=== PATIENT | male | born 1940 | race Caucasian/White ===

== ENCOUNTER 2017-10-11 16:47 | Inpatient (IN) | payer MEDICARE, OTHER ==
[2017-10-11] MEDS ORDERED: Ondansetron 4 MG Tab.DIS PO PRN (17:08)
[2017-10-11] MEDS ORDERED: Acetaminophen 325 MG Tab PO PRN (17:08)
[2017-10-11] MEDS ORDERED: Sodium Chloride 0.9% 10 ML Syringe FLUSH PRN (17:08)
[2017-10-11] MEDS ORDERED: Ondansetron 4 MG/2 ML SDV IV PRN (17:08)
[2017-10-11] MEDS ORDERED: Temazepam 15 MG Cap PO PRN (17:08)
[2017-10-11] MEDS: Clindamycin Phosphate in D5W 300 MG in Premix Bag 1 BAG IV SCH ×4 (18:08→23:00)
[2017-10-11] MEDS ORDERED: Furosemide 40 MG Tab PO PRN (19:06)
[2017-10-11] MEDS ORDERED: Albuterol 8 GM Inhaler INH PRN (19:06)
[2017-10-11] MEDS: Gabapentin 300 MG Cap PO SCH (20:05)
[2017-10-11] MEDS: Simvastatin 40 MG Tab PO SCH (20:05)
[2017-10-11] MEDS: Aspirin 81 MG Tab.EC PO SCH (20:05)
[2017-10-11] MEDS: Metoprolol Tartrate 25 MG Tab PO SCH (20:05)
[2017-10-11] MEDS: Clopidogrel 75 MG Tab PO SCH (20:06)
[2017-10-11] MEDS: Losartan 25 MG Tab PO SCH (20:06)
[2017-10-11] MEDS: Tamsulosin 0.4 MG Cap.ER PO SCH (20:07)
[2017-10-11] MEDS: Formoterol/Mometasone 200-5 MCG 8.8 GM Inhaler IH SCH (20:16)
[2017-10-11] MEDS: Tiotropium Inhaler 18 MCG Inhalation Powder Cap Kit of 5 INH SCH (20:20)
[2017-10-12] MEDS: Clindamycin Phosphate in D5W 300 MG in Premix Bag 1 BAG IV SCH ×2 (05:48)
[2017-10-12] MEDS ORDERED: Albuterol 8 GM Inhaler INH PRN ×2 (07:57→08:00)
[2017-10-12] MEDS: Multivitamin Tab PO SCH (08:03)
[2017-10-12] MEDS: Gabapentin 300 MG Cap PO SCH ×2 (08:03→19:35)
[2017-10-12] MEDS: Metoprolol Tartrate 50 MG Tab PO SCH (08:03)
[2017-10-12] MEDS: Beta-Carotene (Vitamin A) w/Vitamin C & E plus Minerals Tab PO SCH (08:03)
[2017-10-12] MEDS: Calcium Carbonate 500 MG Tab.Chew PO SCH (08:04)
[2017-10-12] MEDS: Cholecalciferol (Vitamin D3) 1,000 Unit Tab PO SCH (08:04)
[2017-10-12] MEDS: Formoterol/Mometasone 200-5 MCG 8.8 GM Inhaler IH SCH ×2 (08:05→19:37)
--- NOTE | 2017-10-12 09:50 | PN ---
DATE: 10/12/2017 S: Lopez Humphries is in with a cellulitis of right lower extremity. Admitted yesterday. Started on Cleocin. O: On examination, erythema and edema apparently, according to the nurses, are down. Says he feels better. LABORATORY DATA: C-reactive protein is up a little bit. ASSESSMENT: CELLULITIS. P: Continue IV antibiotics. CHRISTIAN /[id number]
[2017-10-12] MEDS: COENZYME Q10 PO SCH ×2 (11:06→19:40)
[2017-10-12] MEDS: OSTEO BI FLEX PO SCH (11:06)
[2017-10-12] MEDS ORDERED: Meropenem 1 GM SDV IVPUSH ONE (12:00)
[2017-10-12] MEDS ORDERED: Clindamycin Phosphate in D5W 300 MG in Premix Bag 1 BAG IV SCH ×2 (12:00)
[2017-10-12] MEDS: Simvastatin 40 MG Tab PO SCH (19:35)
[2017-10-12] MEDS: Losartan 25 MG Tab PO SCH (19:36)
[2017-10-12] MEDS: Aspirin 81 MG Tab.EC PO SCH (19:36)
[2017-10-12] MEDS: Metoprolol Tartrate 25 MG Tab PO SCH (19:36)
[2017-10-12] MEDS: Tamsulosin 0.4 MG Cap.ER PO SCH (19:36)
[2017-10-12] MEDS: Clopidogrel 75 MG Tab PO SCH (19:37)
[2017-10-12] MEDS: Tiotropium Inhaler 18 MCG Inhalation Powder Cap Kit of 5 INH SCH (19:38)
[2017-10-12] MEDS: Meropenem 1 GM SDV IVPUSH SCH (23:51)
[2017-10-13] MEDS: Meropenem 1 GM SDV IVPUSH SCH ×3 (07:36→23:41)
[2017-10-13] MEDS: Beta-Carotene (Vitamin A) w/Vitamin C & E plus Minerals Tab PO SCH (07:37)
[2017-10-13] MEDS: Gabapentin 300 MG Cap PO SCH ×2 (07:37→19:39)
[2017-10-13] MEDS: Metoprolol Tartrate 50 MG Tab PO SCH (07:37)
[2017-10-13] MEDS: Multivitamin Tab PO SCH (07:37)
[2017-10-13] MEDS: Calcium Carbonate 500 MG Tab.Chew PO SCH (07:38)
[2017-10-13] MEDS: Cholecalciferol (Vitamin D3) 1,000 Unit Tab PO SCH (07:38)
[2017-10-13] MEDS: Formoterol/Mometasone 200-5 MCG 8.8 GM Inhaler IH SCH ×2 (07:41→19:37)
[2017-10-13] MEDS: OSTEO BI FLEX PO SCH (07:41)
[2017-10-13] MEDS: COENZYME Q10 PO SCH ×2 (07:41→19:42)
--- NOTE | 2017-10-13 13:05 | PN ---
DATE: 10/13/2017 S: Lopez is a 76-year-old male who was admitted to the hospital on the 10/11 secondary to cellulitis of the right lower extremity. He was started on IV antibiotic, vancomycin. He was initially started on Cleocin and started on vancomycin yesterday. He has been responding well. He denies any discomfort in the right lower leg. He states that he feels like it is improving. He states he has otherwise been feeling well during his stay. 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 He states this is unchanged as well. Again, he feels that the redness and the warmth to the right lower leg has significantly improved. O: VITAL SIGNS: Blood pressure is 138/57 with a pulse of 57, O2 sat 97% on room air, temp is 97.5. He has been afebrile since admission. GENERAL: Pleasant cooperative male. He is sitting up, having normal conversation with me. He is requesting to go home in the near future. He denies any complaints at this point in time. He denies any increase in discomfort, etc. HEENT: Grossly unremarkable. LUNGS: Clear to auscultation. I did not hear any adventitious sounds. CARDIAC: Regular. EXTREMITIES: Examination of the right lower extremity does reveal somewhat diminished erythema to the right lower leg that is documented by permanent marker. There is some very minimal warmth to the right lower extremity, which does appear to be improved as well. Evaluation of the amputation of the right foot does show a small well-healing wound. I do not see any active drainage presently. He does have some blanching noted to the right lower leg where the increasing erythema is present. LABORATORY DATA: Does show a white blood count to be improved to 9400, it was 13,700 on admission. D-dimer was only 0.52. INR today was 1.53. His CRP is at 8.5, down from 11.1 yesterday. ASSESSMENT: CELLULITIS OF THE RIGHT LOWER EXTREMITY. P: Initial culture report did show gram-negative rods. However, I do not have a final report back. We will continue to keep him on vancomycin until final report. We will possibly discharge tomorrow as long as he continues to progress. He did verbalize complete understanding of this. was present and verbalized understanding as well. We will re-evaluate in the morning. EDWIN/NEHEMIAH /[id number]
[2017-10-13] MEDS: Losartan 25 MG Tab PO SCH (19:36)
[2017-10-13] MEDS: Tamsulosin 0.4 MG Cap.ER PO SCH (19:37)
[2017-10-13] MEDS: Metoprolol Tartrate 25 MG Tab PO SCH (19:38)
[2017-10-13] MEDS: Aspirin 81 MG Tab.EC PO SCH (19:38)
[2017-10-13] MEDS: Clopidogrel 75 MG Tab PO SCH (19:39)
[2017-10-13] MEDS: Simvastatin 40 MG Tab PO SCH (19:40)
[2017-10-13] MEDS: Tiotropium Inhaler 18 MCG Inhalation Powder Cap Kit of 5 INH SCH (19:40)
[2017-10-14] MEDS: Calcium Carbonate 500 MG Tab.Chew PO SCH (07:57)
[2017-10-14] MEDS: Beta-Carotene (Vitamin A) w/Vitamin C & E plus Minerals Tab PO SCH (07:58)
[2017-10-14] MEDS: Metoprolol Tartrate 50 MG Tab PO SCH (07:58)
[2017-10-14] MEDS: Multivitamin Tab PO SCH (07:58)
[2017-10-14] MEDS: Cholecalciferol (Vitamin D3) 1,000 Unit Tab PO SCH (07:59)
[2017-10-14] MEDS: Gabapentin 300 MG Cap PO SCH ×2 (07:59→19:36)
[2017-10-14] MEDS: Meropenem 1 GM SDV IVPUSH SCH (08:00)
[2017-10-14] MEDS: COENZYME Q10 PO SCH ×2 (08:06→19:38)
[2017-10-14] MEDS: OSTEO BI FLEX PO SCH (08:06)
[2017-10-14] MEDS: Formoterol/Mometasone 200-5 MCG 8.8 GM Inhaler IH SCH ×2 (08:06→19:34)
[2017-10-14] MEDS ORDERED: Warfarin 5 MG Tab PO SCH (12:00)
[2017-10-14] MEDS ORDERED: cefTRIAXone 1 GM Vial IVPUSH SCH (12:00)
--- NOTE | 2017-10-14 12:10 | PN ---
DATE: 10/14/2017 S: Lopez is a 76-year-old male who was admitted to the hospital on 10/11 with concerns of cellulitis to the right lower extremity. 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 He does have a little wound in that vicinity as well. The cellulitis has been mostly confined to the right anterior malone area. He had been put on meropenem and vancomycin, waiting upon culture report. He has been progressing well during his stay. He has been afebrile. He states he does not have any discomfort. He has noticed that the redness in his leg has went down quite a bit. He does not have any concerns at this point in time. O: VITAL SIGNS: Blood pressure is 140/78, pulse has been 83, O2 saturation is 94%, respiratory rate 18, again temperature is 98.2. GENERAL: Pleasant, cooperative male. He is sitting comfortably on his hospital bed. He does not appear to be in any acute distress, not acutely ill. HEENT: Grossly unremarkable. LUNGS: Clear to auscultation. I did not hear any adventitious sounds. CARDIAC: Regular. ABDOMEN: Soft. Bowel sounds are present, normoactive. No organomegaly. No guarding or rigidity. EXTREMITIES: Examination of the left lower extremity does show moderate improvement in regard to erythema of the left anterior malone region. Known wound to the distal tip of the amputation of the left second digit. It is healing well. Very minimal warmth is noted to the left anterior malone region. ASSESSMENT: CELLULITIS OF THE RIGHT LOWER EXTREMITY. P: I did review his microbiology report. It did grow out Serratia marcescens with the sensitivity report. He is sensitive to multiple antibiotics that include ceftriaxone. We will proceed with discontinuing his meropenem and vancomycin and switching him to Rocephin for one day due to being on Coumadin with his INR being subtherapeutic. INR this morning was 1.45, down from 1.53 yesterday. We will give him 5 mg of Coumadin instead of 3 mg today to see how he responds tomorrow. We will look at discharge in the morning. I did speak with both Lopez and his . They both are in agreement with this. The patient is in satisfactory condition. EDWIN/NEHEMIAH /[id number]
[2017-10-14] MEDS: Tamsulosin 0.4 MG Cap.ER PO SCH (19:35)
[2017-10-14] MEDS: Aspirin 81 MG Tab.EC PO SCH (19:36)
[2017-10-14] MEDS: Clopidogrel 75 MG Tab PO SCH (19:36)
[2017-10-14] MEDS: Tiotropium Inhaler 18 MCG Inhalation Powder Cap Kit of 5 INH SCH (19:36)
[2017-10-14] MEDS: Simvastatin 40 MG Tab PO SCH (19:38)
[2017-10-14] MEDS: Losartan 25 MG Tab PO SCH (19:40)
[2017-10-14] MEDS: Metoprolol Tartrate 25 MG Tab PO SCH (19:41)
[2017-10-15 07:19] VITALS: BP 119/82
[2017-10-15] MEDS: Calcium Carbonate 500 MG Tab.Chew PO SCH (07:39)
[2017-10-15] MEDS: Beta-Carotene (Vitamin A) w/Vitamin C & E plus Minerals Tab PO SCH (07:40)
[2017-10-15] MEDS: Gabapentin 300 MG Cap PO SCH (07:40)
[2017-10-15] MEDS: Metoprolol Tartrate 50 MG Tab PO SCH (07:40)
[2017-10-15] MEDS: Multivitamin Tab PO SCH (07:40)
[2017-10-15] MEDS: Cholecalciferol (Vitamin D3) 1,000 Unit Tab PO SCH (07:40)
[2017-10-15] MEDS: OSTEO BI FLEX PO SCH (07:42)
[2017-10-15] MEDS: Formoterol/Mometasone 200-5 MCG 8.8 GM Inhaler IH SCH (07:42)
[2017-10-15] MEDS: COENZYME Q10 PO SCH (07:42)
--- NOTE | 2017-10-15 08:41 | PCM.DCSUM1 ---
Discharge Summary - Hospital Course HPI Initial Comments: Lopez is a 76 year old male who was admitted to the hospital from the clinic on 10/11/2017 for right lower extremity cellulitis. He had a toe amputation on that foot on 09/08/2017. The redness was primarily located on his anterior malone. He was initially started on clindamycin. His CRP did increase some, so he was switched to Vancomycin and merepenum until his wound cultures came back. Wound cultures grew serratia marcescens, which was sensitive to ceftriaxone, so he was switched to that. Throughout hospital stay both his WBC and CRP trended down and patient was afebrile. WBC on admission was 13.7 and at time of discharge was 9.7. CRP at time of admission was 11.1 and down to 3.1 at time of discharge. Patient will be sent home on first generation cephalosporin, Keflex to take for an additional 10 days. His INR was subtherapeutic throughout stay, so we will increase his Coumadin dose to 5 mg daily. INR at discharge was 1.4. Patient was anxious to discharge home. Patient will follow up in the clinic with Dr. Morrison on 10/19/2017, with lab work prior to that. - Discharge Data Discharge Date: 10/15/17 Discharge Disposition: Home, Self-Care 01 Condition: Good - Discharge Diagnosis/Problem(s) (1) Cellulitis of right anterior lower leg SNOMED Code(s): 248008090 ICD Code: L03.115 - CELLULITIS OF RIGHT LOWER LIMB Status: Acute - Patient Instructions Diet: Usual Diet as Tolerated Activity: As Tolerated Wound/Incision Care: Keep Operative Site/Wound Site Clean and Dry Notify Provider of: Fever, Increased Pain, Swelling and Redness, Drainage - Discharge Plan Prescriptions/Med Rec: Cephalexin [Keflex] 500 mg PO BID 10 Days #20 capsule Warfarin [Coumadin] 5 mg PO DAILY #30 tablet Home Medications: Home Meds Felodipine [Felodipine ER] 5 mg PO BEDTIME 05/30/14 [History] Gabapentin 300 mg PO BID 05/30/14 [History] Irbesartan [Avapro] 150 mg PO BEDTIME 05/30/14 [History] Metoprolol Tartrate [Lopressor] 25 mg PO BEDTIME 05/30/14 [History] Tamsulosin [Flomax] 0.8 mg PO BEDTIME 05/30/14 [History] Ascorbic Acid [C-1000] 1,000 mg PO DAILY 05/31/14 [History] Aspirin [Halfprin] 81 mg PO BEDTIME 05/31/14 [History] Budesonide/Formoterol [Symbicort 160-4.5 MCG] 2 puff INH BID 05/31/14 [History] Calcium Carbonate [Calcium] 1,200 mg PO DAILY 05/31/14 [History] Cholecalciferol (Vitamin D3) [Vitamin D3] 2,000 units PO DAILY 05/31/14 [History ] Glucosamine/D3/Boswellia Rowena [Osteo Bi-Flex Caplet] 2 tab PO DAILY 05/31/14 [ History] Magnesium Oxide [Magnesium] 1,000 mg PO DAILY 05/31/14 [History] Multivitamin [Multi-Vitamin Daily] 1 tab PO DAILY 05/31/14 [History] Mcgill-3 Fatty Acids [Mcgill-3] 1,000 mg PO DAILY 05/31/14 [History] Ubidecarenone [Co Q-10] 500 mg PO BID 05/31/14 [History] Clopidogrel [Plavix] 75 mg PO BEDTIME 05/25/16 [History] Furosemide 40 mg PO DAILY PRN 10/11/17 [History] Lutein/Minerals/Vit A,C & E [Ocuvite] 1 tab PO DAILY 10/11/17 [History] Metoprolol Tartrate 50 mg PO DAILY 10/11/17 [History] Rosuvastatin Calcium 20 mg PO BEDTIME 10/11/17 [History] Tiotropium [Spiriva HandiHaler] 1 inh INH BEDTIME 10/11/17 [History] Cephalexin [Keflex] 500 mg PO BID 10 Days #20 capsule 10/15/17 [Rx] Warfarin [Coumadin] 5 mg PO DAILY #30 tablet 10/15/17 [Rx] Patient Handouts: Diabetes and Foot Care, Cellulitis, Adult, [id number] Referrals: Carlos Morrison MD [Primary Care Provider] - - General Info Date of Service: 10/15/17 Admission Dx/Problem (Free Text: Right Lower Extremity Cellulitis Subjective Update: Patient feeling well. Reports he "was never feeling ill." Redness to RLE has resolved. Wound has not been draining. He has been afebrile. Functional Status: Reports: Pain Controlled, Tolerating Diet, Ambulating, Urinating - Review of Systems General: Reports: No Symptoms Pulmonary: Reports: No Symptoms Cardiovascular: Reports: No Symptoms Gastrointestinal: Reports: No Symptoms Genitourinary: Reports: No Symptoms Skin: Reports: Other (redness to RLE improved) Neurological: Reports: No Symptoms - Patient Data Vitals - Most Recent: Last Vital Signs Temp 97.6 F 10/15/17 07:18 Pulse 94 10/15/17 07:40 Resp 20 10/15/17 07:18 BP 119/82 10/15/17 07:40 Pulse Ox 98 10/15/17 07:18 Weight - Most Recent: 264 lb 8 oz Lab Results - Last 24 hrs: Laboratory Results - last 24 hr 10/15/17 10/15/17 10/15/17 Range/Units 06:55 06:55 06:55 WBC 9.7 (5.0-10.0) 10^3/uL RBC 4.27 L (4.50-6.00) 10^6/uL Hgb 13.2 L (14.0-18.0) g/dL Hct 40.3 (40.0-54.0) % MCV 94.4 H (82.0-94.0) fL MCH 30.9 (27.0-32.0) pg MCHC 32.8 L (33.0-38.0) g/dL RDW Coeff of Alcira 14.1 (11.0-15.0) % Plt Count 234 (150-400) 10^3/uL Neut % (Auto) 67.4 (35-85) % Lymph % (Auto) 15.1 (10-55) % Newton % (Auto) 12.5 (0-16) % Eos % (Auto) 4.5 (0-5) % Baso % (Auto) 0.5 (0-3) % Neut # (Auto) 6.50 (1.80-7.00) 10^3/uL Lymph # (Auto) 1.46 (1.00-4.80) 10^3/uL Newton # (Auto) 1.21 H (0.00-0.80) 10^3/uL Eos # (Auto) 0.43 (0.00-0.45) 10^3/uL Baso # (Auto) 0.05 10^3/uL PT 15.3 H (9.7-12.3) SEC INR 1.40 H (0.92-1.18) Creatinine 1.2 (0.7-1.3) mg/dL Est Cr Clr Drug Dosing 56.65 mL/min Estimated GFR (MDRD) 59 L (>=60) mL/min C-Reactive Protein 3.1 H (0.2-0.8) mg/dL VICTORINO Results - Last 24 hrs: Microbiology 10/11/17 19:00 Wound Culture - Final Foot, Right Serratia Marcescens Med Orders - Current: Current Medications Acetaminophen (Tylenol) 650 mg PO Q4H PRN PRN Reason: Pain (Mild 1-3)/fever Last Admin: 10/11/17 18:09 Dose: 650 mg Albuterol (Ventolin Hfa) 0 gm INH Q4H PRN PRN Reason: Shortness of Breath Aspirin (Halfprin) 81 mg PO BEDTIME [facility] Last Admin: 10/14/17 19:36 Dose: 81 mg Calcium Carbonate/Glycine (Tums) 1,000 mg PO DAILY [facility] Last Admin: 10/15/17 07:39 Dose: 1,000 mg Ceftriaxone Sodium (Rocephin) 1 gm IVPUSH Q24H [facility] Last Admin: 10/14/17 12:39 Dose: 1 gm Cholecalciferol (Vitamin D3) 2,000 units PO DAILY [facility] Last Admin: 10/15/17 07:40 Dose: 2,000 units Clopidogrel Bisulfate (Plavix) 75 mg PO BEDTIME [facility] Last Admin: 10/14/17 19:36 Dose: 75 mg Felodipine (Felodipine Er) 5 mg PO BEDTIME [facility] Last Admin: 10/14/17 19:35 Dose: 5 mg Furosemide (Lasix) 40 mg PO DAILY PRN PRN Reason: Edema Gabapentin (Neurontin) 300 mg PO BID [facility] Last Admin: 10/15/17 07:40 Dose: 300 mg Losartan Potassium (Cozaar) 50 mg PO BEDTIME [facility] Last Admin: 10/14/17 19:40 Dose: 50 mg Magnesium Oxide (Magnesium Oxide) 500 mg PO TIDMEALS [facility] Last Admin: 10/15/17 07:40 Dose: 500 mg Metoprolol Tartrate (Lopressor) 25 mg PO BEDTIME [facility] Last Admin: 10/14/17 19:41 Dose: 25 mg Metoprolol Tartrate (Lopressor) 50 mg PO DAILY [facility] Last Admin: 10/15/17 07:40 Dose: 50 mg Mometasone Furoate/Formoterol Fumar (Dulera 200-5 Mcg) 2 puff IH BID [facility] Last Admin: 10/15/17 07:42 Dose: 2 inhalation Multivitamins/Minerals (Prosight) 1 tab PO DAILY [facility] Last Admin: 10/15/17 07:40 Dose: 1 tab Multivitamins/Minerals/Vitamin C (Tab-A-Jason) 1 tab PO DAILY [facility] Last Admin: 10/15/17 07:40 Dose: 1 tab Ptom [Co Q-10] 500 (Mg)) 500 mg PO BID [facility] Last Admin: 10/15/17 07:42 Dose: Not Given Ptom [Osteo Bi-Flex (Caplet]) 2 tab PO DAILY [facility] Last Admin: 10/15/17 07:42 Dose: Not Given Ondansetron HCl (Zofran) 4 mg IV Q4H PRN PRN Reason: Nausea/Vomiting Ondansetron HCl (Zofran Odt) 4 mg PO Q4H PRN PRN Reason: nausea, able to take PO Simvastatin (Zocor) 80 mg PO BEDTIME [facility] Last Admin: 10/14/17 19:38 Dose: 80 mg Sodium Chloride (Saline Flush) 10 ml FLUSH ASDIRECTED PRN PRN Reason: Keep Vein Open Tamsulosin HCl (Flomax) 0.8 mg PO BEDTIME [facility] Last Admin: 10/14/17 19:35 Dose: 0.8 mg Temazepam (Restoril) 15 mg PO BEDTIME PRN PRN Reason: Sleep Tiotropium [place] (Spiriva Handihaler) 18 mcg INH BEDTIME [facility] Last Admin: 10/14/17 19:36 Dose: 1 inh Warfarin Sodium (Coumadin) 5 mg PO DAILY@1200 [facility] Last Admin: 10/14/17 12:39 Dose: 5 mg Discontinued Medications Albuterol (Ventolin Hfa) 2 gm INH ASDIRECTED PRN PRN Reason: Shortness of Breath Albuterol (Ventolin Hfa) 0 gm INH ASDIRECTED PRN PRN Reason: Shortness of Breath Clindamycin Phosphate 300 mg/ (Premix) 50 mls @ 100 mls/hr IV Q6H [facility] Last Admin: 10/12/17 05:48 Dose: 100 mls/hr Clindamycin Phosphate 300 mg/ (Premix) 50 mls @ 100 mls/hr IV Q6H [facility] Vancomycin HCl 1.25 gm/ Sodium (Chloride) 250 mls @ 167 mls/hr IV Q24H [facility] Last Admin: 10/14/17 08:02 Dose: 167 mls/hr Magnesium Oxide (Magnesium Oxide) 1,000 mg PO DAILY [facility] Last Admin: 10/12/17 08:04 Dose: 1,000 mg Meropenem (Merrem) 1 gm IVPUSH Q8H [facility] Last Admin: 10/14/17 08:00 Dose: 1 gm Meropenem (Merrem) 1 gm IVPUSH ONETIME ONE Stop: 10/12/17 12:01 Last Admin: 10/12/17 12:11 Dose: 1 gm Vancomycin HCl (Pharmacy To Dose - Vancomycin) 1 dose .XX ASDIRECTED [facility] Warfarin Sodium (Coumadin) 3 mg PO DAILY@1200 [facility] Last Admin: 10/13/17 12:04 Dose: 3 mg - Exam General: Reports: Alert, Oriented Neck: Reports: Supple Lungs: Reports: Clear to Auscultation, Normal Respiratory Effort Cardiovascular: Reports: Regular Rate, Regular Rhythm GI/Abdominal Exam: Normal Bowel Sounds, Soft, Non-Tender, No Organomegaly, No Distention, No Abnormal Bruit, No Mass, Pelvis Stable Extremities: Normal Inspection, Normal Range of Motion, Non-Tender, Normal Capillary Refill, Other (incision from toe amputation CDI) Skin: Reports: Warm, Dry, Intact Wound/Incisions: Reports: Healing Well, Dressing Dry and Intact, No Drainage Neurological: Reports: No New Focal Deficit Psy/Mental Status: Reports: Alert, Normal Affect, Normal Mood *Q Meaningful Use (DIS) - VTE *Q VTE Criteria *Q: - Stroke *Q Stroke Criteria *Q: - AMI *Q AMI Criteria *Q:
== END 2017-10-15 10:00 | disposition home or self-care (01) | DRG 603 ==
LOC: INTOOBSV 16:47 → UNDOADMOB 16:47 → OBSVTOIN 16:47 → CC.MS 16:47 → OBSVTOIN 17:09 → CC.MS 17:09
PROVIDERS: ADMIT Physician Assistant Medical; ATTEND General Practice
DX: L03.115 Cellulitis of right lower limb (principal); B96.89 Other specified bacterial agents as the cause of diseases classified elsewhere; Z89.421 Acquired absence of other right toe(s); Z88.2 Allergy status to sulfonamides; Z79.82 Long term (current) use of aspirin; Z79.01 Long term (current) use of anticoagulants; Z79.899 Other long term (current) drug therapy
CPT/HCPCS: 36415; 80048; 80053; 82565; 83735; 85025; 85379; 85610; 86140; 87070; 87077; 87186; A9270-GY; J0696; J2185; J3370; J7050

== ENCOUNTER 2017-12-16 01:39 | Emergency (ER) | payer MEDICARE, OTHER ==
--- NOTE | 2017-12-16 02:43 | EDM.PDOC ---
ED HPI GENERAL MEDICAL PROBLEM - General Chief Complaint: Upper Extremity Injury/Pain Stated Complaint: "HAVING RIGHT ARM PAIN" Time Seen by Provider: 12/16/17 02:00 Source of Information: Reports: Patient, Family (wfe) History Limitations: Reports: No Limitations - History of Present Illness INITIAL COMMENTS - FREE TEXT/NARRATIVE: Approximately 2300 when he was coming home he lost his balance getting out of the car and fell in the garage. He hit his right arm and is having pain in the elbow area. He does have a small abrasion to the area and swelling, has small abrasion to the right hand at the base of the 5th digit, and small abrasion to the right knee. None of these are bleeding at this time. Is on coumadin currently. Swelling noted to the right elbow from hematoma at the site of the abrasion. Denies any numbness or tingling to the arm. Denies any shoulder pain. Denies any other injury or hitting his head or blacking out. Denies feeling dizzy. Onset: Today Location: Reports: Upper Extremity, Right Quality: Reports: Sharp, Stabbing Severity: Moderate Improves with: Reports: Rest Worsens with: Reports: Movement Associated Symptoms: Reports: No Other Symptoms Right Arm Pain Score (Numeric/FACES): 10 - Related Data Allergies Allergy/AdvReac Type Severity Reaction Status Date / Time Sulfa (Sulfonamide Allergy Swelling Verified 12/16/17 04:14 Antibiotics) Home Meds: Home Meds Felodipine [Felodipine ER] 5 mg PO BEDTIME 05/30/14 [History] Gabapentin 300 mg PO DAILY 05/30/14 [History] Irbesartan [Avapro] 150 mg PO BEDTIME 05/30/14 [History] Metoprolol Tartrate [Lopressor] 25 mg PO BEDTIME 05/30/14 [History] Tamsulosin [Flomax] 0.8 mg PO BEDTIME 05/30/14 [History] Ascorbic Acid [C-1000] 1,000 mg PO DAILY 05/31/14 [History] Aspirin [Halfprin] 81 mg PO BEDTIME 05/31/14 [History] Budesonide/Formoterol [Symbicort 160-4.5 MCG] 2 puff INH BID 05/31/14 [History] Calcium Carbonate [Calcium] 1,200 mg PO DAILY 05/31/14 [History] Cholecalciferol (Vitamin D3) [Vitamin D3] 2,000 units PO DAILY 05/31/14 [History ] Glucosamine/D3/Boswellia Rowena [Osteo Bi-Flex Caplet] 2 tab PO DAILY 05/31/14 [ History] Magnesium Oxide [Magnesium] 1,000 mg PO DAILY 05/31/14 [History] Multivitamin [Multi-Vitamin Daily] 1 tab PO DAILY 05/31/14 [History] Leola-3 Fatty Acids [Leola-3] 1,000 mg PO DAILY 05/31/14 [History] Ubidecarenone [Co Q-10] 500 mg PO BID 05/31/14 [History] Clopidogrel [Plavix] 75 mg PO BEDTIME 05/25/16 [History] Furosemide 40 mg PO DAILY PRN 10/11/17 [History] Lutein/Minerals/Vit A,C & E [Ocuvite] 1 tab PO DAILY 10/11/17 [History] Metoprolol Tartrate 50 mg PO DAILY 10/11/17 [History] Rosuvastatin Calcium 20 mg PO BEDTIME 10/11/17 [History] Tiotropium [Spiriva HandiHaler] 1 inh INH BEDTIME 10/11/17 [History] Warfarin [Coumadin] 5 mg PO DAILY #30 tablet 10/15/17 [Rx] Past Medical History HEENT History: Reports: Cataract, Impaired Vision Cardiovascular History: Reports: High Cholesterol, Hypertension, Pacemaker, Stents Other Cardiovascular History: 4 STENTS, ONE IN THE HEART AND 3 IN LLE Respiratory History: Reports: COPD - Past Surgical History HEENT Surgical History: Reports: Adenoidectomy, Cataract Surgery, Tonsillectomy Cardiovascular Surgical History: Reports: Carotid Endarterectomy, Pacer Social & Family History - Family History Cardiac: Reports: Hypertension, [place] - Tobacco Use Smoking Status *Q: Former Smoker Years of Tobacco use: 25 Used Tobacco, but Quit: Yes Month Tobacco Last Used: 31 Y.O Second Hand Smoke Exposure: No - Caffeine Use Caffeine Use: Reports: Coffee - Alcohol Use Days Per Week of Alcohol Use: 3 Number of Drinks Per Day: 4 Total Drinks Per Week: 12 - Recreational Drug Use Recreational Drug Use: No - Living Situation & Occupation Living situation: Reports: , with Family Review of Systems - Review of Systems Review Of Systems: See Below Eyes: Reports: No Symptoms Ears: Reports: No Symptoms Nose: Reports: No Symptoms Mouth/Throat: Reports: No Symptoms Respiratory: Reports: No Symptoms Cardiovascular: Reports: No Symptoms GI/Abdominal: Reports: No Symptoms Musculoskeletal: Reports: Arm Pain, Joint Pain Skin: Reports: Wound (right forarm, right hand, right knee all have small abrasions that are currently not bleeding.) ED EXAM, GENERAL - Physical Exam Exam: See Below Exam Limited By: No Limitations General Appearance: Alert, WD/WN, Moderate Distress Ears: Normal Canal Head: Atraumatic, Normocephalic Neck: Normal Inspection, Supple, Non-Tender, Full Range of Motion Respiratory/Chest: No Respiratory Distress, Lungs Clear, Normal Breath Sounds Cardiovascular: Regular Rate, Rhythm GI/Abdominal: Normal Bowel Sounds, Soft Extremities: Limited Range of Motion (to the right upper extremity. elbow swollen and painful with any movement. ) Neurological: Alert, Oriented Skin Exam: Warm, Dry, Wound/Incision (to the proximal right elbow, base of the right fifth digit, right knee all have abrasions that are currently not bleeding.) Course - Vital Signs Last Recorded V/S: Last Vital Signs Temp 96.7 F 12/16/17 02:00 Pulse 69 12/16/17 02:00 Resp 20 12/16/17 02:00 BP 147/86 H 12/16/17 02:00 Pulse Ox 97 12/16/17 02:00 - Orders/Labs/Meds Meds: Medications Discontinued Medications Generic Name Dose Route Start Last Admin Trade Name Freq PRN Reason Stop Dose Admin Fentanyl 50 mcg 12/16/17 02:40 12/16/17 02:48 Sublimaze IM 12/16/17 02:41 50 mcg ONETIME ONE Administration - Re-Assessments/Exams Free Text/Narrative Re-Assessment/Exam: 12/16/17 02:30 With assistance a posterior splint was applied from the mid humerus to the finger tips. Then put in sling. He states the pain has improved significantly since immobilized. Good CMS noted to distal fingers. Departure - Departure Time of Disposition: 02:49 Disposition: Home, Self-Care 01 Condition: Good Clinical Impression: Fracture of proximal end of ulna Qualifiers: Encounter type: initial encounter Fracture type: closed Fracture morphology: unspecified fracture morphology Laterality: right Qualified Code(s): S52.001A - Unspecified fracture of upper end of right ulna, initial encounter for closed fracture - Discharge Information Instructions: Cast or Splint Care, [id number], How to Use a Sling, Easy-to- Read Referrals: Carlos Morrison MD [Primary Care Provider] - Forms: ED Department Discharge Additional Instructions: Use the hydrocodone that you have at home for pain management as needed I will call you after xray is reviewed by orthopedics at [facility] Use sling for comfort ice to the elbow region If any numbness or tingling occurs then you need to notify us immediately. - Problem List & Annotations (1) Fracture of proximal end of ulna SNOMED Code(s): 897499982 Code(s): S52.009A - UNSP FRACTURE OF UPPER END OF UNSP ULNA, INIT FOR CLOS FX Status: Acute Priority: High Qualifiers: Encounter type: initial encounter Fracture type: closed Fracture morphology: unspecified fracture morphology Laterality: right Qualified Code (s): S52.001A - Unspecified fracture of upper end of right ulna, initial encounter for closed fracture - Problem List Review Problem List Initiated/Reviewed/Updated: Yes
[2017-12-16] MEDS: fentaNYL 100 MCG/2 ML SDV IM ONE (02:48)
[2017-12-16 04:11] VITALS: BP 147/86
== END 2017-12-16 03:00 | disposition home or self-care (01) ==
LOC: CC.ED 01:39
DX: S52.001A Unspecified fracture of upper end of right ulna, initial encounter for closed fracture (principal); S52.121A Displaced fracture of head of right radius, initial encounter for closed fracture; Z88.2 Allergy status to sulfonamides; Z79.01 Long term (current) use of anticoagulants; I10 Essential (primary) hypertension; E78.00 Pure hypercholesterolemia, unspecified; Z87.891 Personal history of nicotine dependence; W19.XXXA Unspecified fall, initial encounter
CPT/HCPCS: 29125; 73090; 96372; 99283; J3010